=== PATIENT | male | born 1985 | race African-American/Black ===

== ENCOUNTER 2019-04-17 19:09 | Emergency (ER) | payer OTHER ==
[~2019-04-17] VITALS: Ht 180.3 cm; Wt 83.9 kg
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
--- NOTE | 2019-04-17 19:47 | NUR ---
ED Nurse Note: pt off to xray.
[2019-04-17 20:03] VITALS: BP 118/63
[2019-04-17] MEDS ORDERED: IBUPROFEN600 MG ORAL (20:42)
[2019-04-17] MEDS ORDERED: ROBAXIN-500MG ORAL (20:42)
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
[2019-04-17 20:51] VITALS: BP 110/67
--- NOTE | 2019-04-17 20:51 | NUR ---
ED Nurse Note: pt cleared to be d/c per ermd, pt discharge and aftercare instruction provided w/ prescription, pt education done via discussion and handout, pt advised to follow up with pcp or return to ed if changes in condition, vss, ambulatory w/ steady gait, left w/ all belongings.
--- NOTE | 2019-04-18 10:11 | Diagnostic Imaging Report ---
Indication: Back pain Comparison: None Findings: 3 views of the lumbar spine were obtained. No acute fracture or malalignment is identified. Vertebral body heights and disk spaces are well maintained. Posterior elements are unremarkable. Impression: No acute findings.
== END 2019-04-17 20:55 | disposition home or self-care (01) ==
LOC: EMR 19:33
DX: S39.012A Strain of muscle, fascia and tendon of lower back, initial encounter (principal); Y92.410 Unspecified street and highway as the place of occurrence of the external cause; V49.9XXA Car occupant (driver) (passenger) injured in unspecified traffic accident, initial encounter; Z87.820 Personal history of traumatic brain injury
CPT/HCPCS: 72020; 99283